=== PATIENT | female | born 1970 | race Caucasian/White ===

== ENCOUNTER → 2023-07-10 06:23 | Day surgery (SDC) | payer OTHER, SELFPAY ==
[2023-07-10 08:27] LABS: Glucose - Point of Care 197 mg/dl (70-99)
== END ==
LOC: GI 06:23
PROVIDERS: ATTENDING PHYSICIAN Internal Medicine Gastroenterology; FAMILY PHYSICIAN Family Medicine
DX: D50.0 Iron deficiency anemia secondary to blood loss (chronic) (principal); R12 Heartburn
CPT/HCPCS: 45378; 43239; 88305; 82962

== ENCOUNTER 2024-10-25 19:11 | Inpatient (IN) | payer OTHER, SELFPAY ==
[2024-10-25] VITALS (11 sets, daily range): BP systolic 87–148; BP diastolic 54–77; PULSE 81–85; BMI 26.6; BMI 27.0
[2024-10-25 14:49] LABS: Hematocrit 34.3 % (37.0-47.0); Hemoglobin 11.4 g/dL (12.0-16.0); Mean Corp Hgb Conc. 33.2 g/dL (33.0-37.0); Mean Corpuscular Volume 92.2 fL (81.0-99.0); Nucleated Red Blood Cells % 0 %; Platelet Count 255 10^3/uL (130-400); Red Cell Dist. Width 14.1 % (11.5-14.5)
[2024-10-25 15:17] LABS: ALT (SGPT) 27 U/L (0-35); AST (SGOT) 23 U/L (14-36); Albumin 4.5 g/dl (3.5-5.0); Alkaline Phosphatase 119 U/L (38-126); Blood Urea Nitrogen 42 mg/dl (7-17); Calcium 9.8 mg/dl (8.4-10.2); Carbon Dioxide 16 mmol/L (22-30); Chloride 114 mmol/L (98-107); Glucose 159 mg/dl (70-99); Potassium 4.8 mmol/L (3.5-5.1); Sodium 140 mmol/L (135-145); Total Protein 7.9 g/dl (6.3-8.2); eGFR 53.13
--- NOTE | 2024-10-25 17:23 | ED.GENMED ---
History of Present Illness
General
Chief Complaint: Dizziness
Source: patient
Exam Limitations: none
Time Seen by Provider: 10/25/24 17:02
Nursing documentation reviewed up to this point in time: agreed with
History of Present Illness
History of Present Illness:
Patient discharged from [facility] 2 weeks ago, after being admitted for 7 weeks secondary to left foot osteomyelitis, resulting in left fifth toe amputation, presents to ED secondary to persistent hypotension with dizziness since being
discharged home. Patient has been evaluated on multiple occasions by visiting nurse with systolic pressure in 80s with symptoms. Patient does report that she has been eating and drinking fluids. Denies fever or chills. Denies increased foot
pain. Denies vomiting or diarrhea. Patient was told to eat a diet rich in salt when she was discharged home. In addition, during hospitalization, patient reports having received cardiac catheterization as part of cardiac clearance, at which point
catheterization revealed 100% occlusion of RCA. Unfortunately, stent could not be placed due to impending foot surgery. Cardiac intervention was deferred until she was discharged home. Patient has an appointment with balling head tender in 2 weeks.
Patient denies chest pain or shortness of breath.
Past History
Past History
ED Past Medical History: NIDDM
Social History
Tobacco: Non-smoker
Review of Systems
Review of Systems
Allergies reviewed?: Yes
All Other Systems: ROS reviewed and negative except as documented in HPI and ROS
Constitutional: Reports no symptoms
Respiratory: Reports no symptoms
Cardiac: Reports no symptoms
ABD/GI: Reports no symptoms
Musculoskeletal: Reports no symptoms
Skin: Reports no symptoms
Neurological: Reports dizzy and weakness
Phy Exam
Physical Exam
Physical Exam:
Physical Exam
General: no apparent distress, not acutely ill. afebrile.
Head: nc/at. eomi
Neck: supple. no meningeal signs.
Neuro: alert and oriented x 3. no focal neurological deficits
Skin: no rash
Psychiatric: well kept. interactive and cooperative
Extremities: no edema. no calf tenderness.
Course
Orders/Labs/Results
Orders:
Orders
10/25/24 14:43
CBC/With Diff [Complete Blood Count/With Diff] Urgent
CMP [Comprehensive Metabolic Panel] Urgent
10/25/24 Dinner
2000 calorie (17 carb) Diabetic
At Your Request: Full Participation
Does patient need a safe tray?: No
10/25/24 17:23
0.9% Sodium Chloride 250 ml [Nss] 250 ml IV BOLUS
10/25/24 17:28
Orthostatic VS- Treatment ONCE
10/25/24 17:35
Lactate Level [Lactic Acid] Urgent
Blood Culture Q30M
RICHI Source: Blood/Venous
Specimen Description:
Blood Culture Q30M
RICHI Source: Blood/Venous
Specimen Description:
10/25/24 18:47
Admit/Transfer Patient As Directed
Co-Sign Provider:
Level of Care: Inpatient admission
Assign to:: Telemetry
Physician / Group: ja
Diagnosis: orthostatic hypotension
Reason for Telemetry: Arrhythmia
Date to Stop Telemetry: 10/28/24
Time to Stop Telemetry: 11:00
Reason for Hospitalization: orthostatic hypotension
Expected length of stay greater than two midnights?: Yes
ELOS- Estimated Length of Stay in days: 2
I certify the patient meets the requirements for IP care: Yes
10/25/24 18:48
PRN Pain Medication Management As Directed
May give lesser potent ordered pain med per pt: Yes
preference::
Protocol:: Medication orders for pain may be administered in a
manner that supports deferring to patient preference
when the pt is:
- Requesting an ordered lesser potent pain medication.
Least to most potent pain medications are defined
as: acetaminophen < NSAID < tramadol < opioids
(morphine, oxycodone, hydromorphone).
- Requesting a lesser dose of the same medication IF
ORDERED.
- Requesting a less intrusive route of administration
if both routes are prescribed by the provider (PO <
IV).
10/25/24 18:49
Code Status As Directed
Resuscitation Status: Full Code
10/25/24 18:50
CR Chest - 2 Views Urgent
Comment:
Reason For Exam: cough
10/25/24 18:52
Midodrine [ProAmatine] 5 mg PO Q8HPRN PRN
10/25/24 20:53
VTE Contraindication Routine
VTE Mechanical Device Contraindication: Medical Contraindication
Pharmocologic Contraindication: Medical Contraindication
Activity As Directed
Activity Level: As Tolerated
Vital Signs As Directed
Frequency: Per unit guidelines
10/26/24 06:00
Complete Blood Count/With Diff IN AM
Comprehensive Metabolic Panel IN AM
10/28/24 11:00
DC Protocol for Telemetry ONCE
Abnormal Lab Results
10/25/24
14:43
RBC 3.72 L 10^6/uL
(4.20-5.40)
Hgb 11.4 L g/dL
(12.0-16.0)
Hct 34.3 L %
(37.0-47.0)
MPV 10.5 H fL
(7.4-10.4)
Absolute Neuts (auto) 6.6 H 10^3/uL
(1.4-6.5)
Lymphocytes % 16.7 L %
(20.5-51.1)
Chloride 114 H mmol/L
(98-107)
Carbon Dioxide 16 L mmol/L
(22-30)
BUN 42 H mg/dl
(7-17)
Creatinine 1.2 H mg/dL
(0.6-1.0)
Glucose 159 H mg/dl
(70-99)
10/25/24 14:43
10/25/24 14:43
Vital Signs
Initial and Last Documented VS:
Initial Vital Signs
Temp Pulse Resp BP Pulse Ox
98.4 F 87 20 115/54 99
10/25/24 14:33 10/25/24 14:33 10/25/24 14:33 10/25/24 14:33 10/25/24 14:33
Last Documented Vital Signs
Temp Pulse Resp BP Pulse Ox
98.1 F 86 16 115/59 99
10/25/24 21:04 10/25/24 21:04 10/25/24 21:04 10/25/24 21:04 10/25/24 21:04
MDM/Problems Addressed
MDM/Problems Addressed:
Orthostatic vital signs checked, notable for significant drop in systolic blood pressure along with extreme dizziness. In light of abnormal cardiac catheterization during recent hospitalization, patient will need further evaluation, including
obtaining records from [facility]. Patient will be admitted for further evaluation and treatment.
*Pulse Oximetry
SaO2: 99
Oxygen Mode of Delivery: Room air
Patient hypoxic: no
*Critical Care Note
Total Time (30-74mins, 75-104mins- exclusive of procedures): Not Applicable
ED Attending Note
-
Portions of this chart may have been created with voice recognition software.� Occasional wrong word or��sound alike� substitutions may have occurred due to the inherent limitations of voice recognition software.
Discharge Plan
Departure
Patient Disposition: Admit
Date of Disposition: 10/25/24
Time of Disposition: 18:25
Admit to: Telemetry
Presentation/result/management discussed w/ accepting MD/DO: Hospitalist
Discharge Problem:
Hypotension
Interventions
Interventions:
*Risk Screen - Suicide Last Done: 10/25/24 14:33
*General Assessment Last Done: 10/25/24 14:33
*Neglect/Abuse Screening Last Done: 10/25/24 14:33
*ED- Fall Risk Assessment Last Done: 10/25/24 17:52
*ED COVID-19 Vaccine History Last Done: 10/25/24 14:33
*Nursing Disposition Last Done: 10/25/24 20:51
ED- Neurological Assessment Last Done: 10/25/24 17:52
ED- Cardiac Assessment Last Done: 10/25/24 20:51
Discharge Date and Time
Discharge Date/Time: 10/25/24 20:52
[2024-10-25] MEDS: NSS 250 IV (17:48)
--- NOTE | 2024-10-25 18:50 | HPS.HSE ---
Family Physician
-
Family Physician: Som Resendiz
Chief Complaint
-
hypotension
History of Present Illness
54-year-old female past medical history of diabetes, anemia, DVT in 2020 on Eliquis, CAD, CHF, osteomyelitis status post left fifth toe metatarsal amputation, venous bypass on the left 4 weeks ago, presenting with symptomatic hypotension.
She was discharged from [facility] 2 weeks ago after 6-week stay for left foot osteomyelitis and toe amputation. During the stay she developed SKYLER secondary to vancomycin as well as acute CHF exacerbation from IV fluids and associated
transaminitis. She was seen by cardiology and had cardiac catheterization which showed 100% RCA occlusion which was not stented due to her foot surgery. Outpatient follow-up was recommended. She has an appointment with Dr. Quintana next week.
She felt fine on discharge but afterwards her blood pressures has been in the 80s systolic with significant orthostatic hypotension. She denies any fevers but feels cold. Denies any discharge or pain of the left foot amputation site. She did have
a cough yesterday which is dry but denies shortness of breath. Denies nausea or vomiting, diarrhea, abdominal pain or urinary symptoms. Denies any rashes or joint pains. Denies neck pain or headache.
She has been eating and drinking sufficiently.
Denies smoking alcohol use.
Medical History
Past Medical History
Past Medical History: Reports Other (diabetes, anemia, DVT in 2020 on Eliquis, CAD, CHF, osteomyelitis status post left fifth toe metatarsal amputation, venous bypass on the left 4 weeks ago)
Past Surgical History: Reports Other (, right foot surgery, left hand surgery,)
Social History
Tobacco: Non-smoker
Alcohol: None
Drug: None
Family History
Family History: Not pertinent
Allergies / Home Medications
Allergies reflects when Allergies were last updated in [facility].
Home Medications with original date entered in [facility]
Allergy/Medication List:
Allergies
Allergy/AdvReac Type Severity Reaction Status Date / Time
gabapentin Allergy Vomiting Verified 10/25/24 14:33
Home Medications
rosuvastatin 20 mg tablet 20 mg PO QPM High cholesterol 01/04/21
albuterol sulfate 90 mcg/actuation aerosol inhaler 2 puff inhalation R Q4HPRN PRN shortness of breath ##1 01/09/21
blood sugar diagnostic (Accu-Chek Guide test strips) #200 strips 01/09/21
blood-glucose meter (Accu-Chek Guide Glucose Meter) #1 ea 01/09/21
dexamethasone 6 mg tablet (Decadron) 6 mg PO DAILY 5 days #5 tabs 01/09/21
insulin aspart U-100 100 unit/mL (3 mL) subcutaneous pen (Novolog FlexPen U-100 Insulin aspart) 30 units (0.3 mL) SC AC 30 days ##5 01/09/21
insulin glargine 100 unit/mL (3 mL) subcutaneous pen (Lantus Solostar U-100 Insulin) 38 units (0.38 mL) SC HS 30 days ##5 01/09/21
lancets (Accu-Chek Fastclix Lancet Drum) #200 ea 01/09/21
pen needle, diabetic 32 gauge x 1/4' (BD Ultra-Fine Micro Pen Needle) ##200 01/09/21
rivaroxaban 15 mg (42)-20 mg (9) tablets in a starter pack (Xarelto DVT-PE Treatment 30-Day Starter) 1 tab PO DIRECTED ##1 01/09/21
Review of Systems
-
History Source: Patient
A 12 point ROS was completed and negative except as noted: Yes
Constitutional: Reports No Symptoms
EENT: Reports No Symptoms
Respiratory: Reports No Symptoms
Cardiac: Reports No Symptoms
Abdomen/GI: Reports No Symptoms
: Reports No Symptoms
Musculoskeletal: Reports No Symptoms
Skin: Reports No Symptoms
Neurological: Reports No Symptoms
Endocrine: Reports No Symptoms
Hematologic/Lymphatic: Reports No Symptoms
Psych: Reports No Symptoms
Physical Exam
Vital Signs
Vital Signs
Temp Pulse Resp BP Pulse Ox
98.4 F 84 21 131/75 100
10/25/24 14:33 10/25/24 18:15 10/25/24 18:15 10/25/24 18:01 10/25/24 18:15
Physical Exam
General: Well Developed, Well Nourished and No Apparent Distress
HEENT: NormoCephalic, Moist mucous membranes and Atraumatic
Respiratory: Clear
Cardiac: S1/S2 and Regular Rhythm; No Murmur or Rub
GI: Soft, Non Tender, Non Distended and Normal Bowel Sounds; No Organomegaly
Rectal: Deferred by Provider
Musculoskeletal: No Clubbing, No Cyanosis and No Edema
Skin: No Rash
Neuro: Nonfocal/grossly intact
Laboratory Results
-
10/25/24 14:43
10/25/24 14:43
Laboratory Results
Lactic Acid 0.9 mmol/L (0.7-2.0) 10/25/24 17:35
Total Bilirubin 0.6 mg/dl (0.2-1.3) 10/25/24 14:43
AST 23 U/L (14-36) 10/25/24 14:43
ALT 27 U/L (0-35) 10/25/24 14:43
Alkaline Phosphatase 119 U/L (38-126) 10/25/24 14:43
Data Reviewed
-
Lab Data: Labs Reviewed by me
Old Records: Reviewed
Impression/Plan
-
IMPRESSION:
PLAN:
# Hypotension/severe orthostatic hypotension possibly 100% RCA occlusion contributing
- Blood cultures pending although no signs of infection apart from cough
- IV fluids given, hold further fluids given history of congestive heart failure
- Blood pressure 140 systolic after IV fluids however dropping to 80s with standing
-Midodrine as needed
- Need to get records from [facility] particularly regarding echocardiogram and cardiology workup
- Cardiology consulted
# Improving acute kidney injury secondary to vancomycin
-Creatinine of 1.2 which is significantly improved from 4 during recent admission at [facility]
# Cough
- Check chest x-ray
Osteomyelitis status post left fifth metatarsal amputation
Venous bypass 4 weeks ago of left leg
-Continue oxycodone
CAD with 100% RCA occlusion
- Not stented due to recent foot surgery
- Outpatient follow-up with Dr. Quintana planned
- Continue aspirin
History of heart failure during recent admission
Type 2 diabetes
- Continue Lantus 16
- Insulin sliding scale
Chronic anemia
- Hemoglobin of 11.4 which is close to discharge hemoglobin
- Continue ferrous sulfate
DVT in 2020
-Continue Eliquis
Full code
DVT prophylaxis/Eliquis
Regular diet
[2024-10-25] MEDS: TYLENOL 1000 MG PO (22:27)
[2024-10-25 23:23] LABS: Glucose - Point of Care 217 mg/dl (70-99)
[2024-10-25] MEDS: LANTUS 0.16 UNITS SC (23:30)
[2024-10-26 03:00] VITALS: BP 119/61
[2024-10-26 05:09] VITALS: BMI 27.0
[2024-10-26 07:18] LABS: Glucose - Point of Care 229 mg/dl (70-99)
[2024-10-26 07:30] VITALS: BP 116/71
[2024-10-26 07:34] LABS: Hematocrit 32.1 % (37.0-47.0); Hemoglobin 10.4 g/dL (12.0-16.0); Mean Corp Hgb Conc. 32.4 g/dL (33.0-37.0); Mean Corpuscular Volume 94.4 fL (81.0-99.0); Nucleated Red Blood Cells % 0 %; Platelet Count 209 10^3/uL (130-400); Red Cell Dist. Width 13.9 % (11.5-14.5)
[2024-10-26 07:37] LABS: ALT (SGPT) 23 U/L (0-35); AST (SGOT) 18 U/L (14-36); Albumin 3.9 g/dl (3.5-5.0); Alkaline Phosphatase 103 U/L (38-126); Blood Urea Nitrogen 38 mg/dl (7-17); Calcium 9.5 mg/dl (8.4-10.2); Carbon Dioxide 17 mmol/L (22-30); Chloride 119 mmol/L (98-107); Estimated Creatinine Clearance 47 ml/min; Glucose 196 mg/dl (70-99); Potassium 4.6 mmol/L (3.5-5.1); Sodium 143 mmol/L (135-145); Total Protein 6.8 g/dl (6.3-8.2); eGFR 53.13
--- NOTE | 2024-10-26 07:37 | CON.CAR ---
Addendum entered and electronically signed by Darwin Yo MD 10/26/24 17:06:
I saw and examined the patient.
The Ux Visual Designer's note was reviewed and I agree with the note.
Comment:
GEN: No distress, awake, Ox3
HEENT: supple, anicteric, mmm
LUNGS: CTA, no wheezes/rales
CV: Reg, S1/S2, 1/6 syst LSB, no murmur
ABD: soft, BS+, NT/ND
EXT: No edema
NEURO: Gross non-focal
SKIN: dressing inttact
Plan:
54-year-old female with extended hospitalization at [facility] for left foot osteomyelitis with peripheral bypass and left fifth toe amputation, coronary artery disease status post cardiac cath, hypotension, hyperlipidemia, diabetes, anemia,
presents to [facility] with dizziness and lightheadedness.
I reviewed all of her records from [facility]. Cardiac cath was performed in August 2024 with 100% chronic total occlusion of the RCA, 60-70 send left circumflex lesion and diffuse disease in her LAD. LVEF was preserved.
Of note, the patient's family contact stated she had another episode after a cath of chest pains with an abnormal troponin. These records are currently unavailable.
Also during her hospitalization she had acute renal failure with a creatinine up to 2.4 which dramatically improved.
The etiology of her lightheadedness and dizziness remains unclear. I suspect this is more due to deconditioning, fatigue, and possible orthostasis. She has had low blood pressure in the past.
Recommend repeat echocardiogram to reevaluate LVEF and valves. Will add midodrine 2.5 mg p.o. twice daily and follow blood pressure closely. Check orthostatics. Continue to increase oral hydration.
Will add low-dose carvedilol 3with history of coronary artery disease. Continue aspirin, Plavix, and will add statin.
Original Note:
Consultation
Consultation Request
Date/Time Consultation Requested: 10/25/2024 at 2342
Date/Time Consultation Performed: 10/26/2024 at 0744
Requesting Provider: Dr. Ley
Performing Provider: Dr. Alvarado
Reason for Consultation: Hypotension, CAD
Medical History
-
History of Present Illness:
Patient came to [facility] ER yesterday with hypotension and cardiology is consulted for h/o CAD. Patient lives in [place] and was just admitted with [facility] 08/26/24 until 10/06/24 with left foot osteomyelitis resulting in left 5th toe amputation and
peripheral bypass. Records obtained by my office and are pending, but patient reports vancomycin caused SKYLER. Patient was given IVFs and then reportedly had CHF. Patient was seen by cardiology during [facility] admission and had cardiac cath prior to
peripheral bypass that revealed a SHOP GIRL RCA and patient reports that no PCI due to need for peripheral bypass, again await records. Patient says she was told to consume a high salt diet at home due to hypotension. VN has been following patient at home
and told patient to go to ER with hypotension.
PMH:
Recent admission to [facility] left foot osteomyelitis, SKYLER, PAD and CAD 08/26/2024 until 10/06/2024
CAD
Abnormal pharmacologic stress test at [facility] 08/2024
SHOP GIRL of RCA, focal lesion left circumflex and diffuse luminal irregularities in the LAD by cardiac cath at [facility] 08/2024
Orthostatic hypotension
Reported h/o acute HF unknown EF during admission to [facility]
PAD
s/p left fifth toe amputation at [facility] 08/2024
s/p left femoral-tibial peripheral bypass at [facility] 09/08/24
h/o PE in the setting of COVID 2020
DM 2
Anemia
s/p 2 units PRBCs at [facility]
Past Medical History
Past Medical History: Other (In HPI)
Past Surgical History: Cardiac (Cardiac cath at [facility] with SHOP GIRL RCA 08/2024), and Other (Left fifth toe amputation and peripheral bypass at [facility] 08/2024)
Social History
Tobacco: Non-Smoker
Alcohol: None
Drug: None
Personal:
Living: With Family
Employment: Employed
Family History
Family History: Other (No known history of CAD)
Allergies / Home Medications
Allergy/AdvReac Type Severity Reaction Status Date / Time
gabapentin Allergy Vomiting Verified 10/25/24 14:33
�Medication �Instructions �Recorded �Confirmed �Type
aspirin 81 mg tablet,delayed 81 mg PO DAILY 10/25/24 10/25/24 History
release
clopidogrel 75 mg tablet (Plavix) 75 mg PO DAILY 10/25/24 10/25/24 History
famotidine 20 mg tablet (Pepcid) 20 mg PO DAILY 10/25/24 10/25/24 History
ferrous sulfate 325 mg (65 mg 975 mg PO DAILY 10/25/24 10/25/24 History
iron) tablet
insulin aspart U-100 100 unit/mL 8 units SC AC 10/25/24 10/25/24 History
(3 mL) subcutaneous pen (Novolog
FlexPen U-100 Insulin aspart)
insulin glargine-yfgn 100 unit/mL 19 unit SC HS 10/25/24 10/25/24 History
subcutaneous solution
polyethylene glycol 3350 17 gram 17 g PO DAILYPRN PRN CONSTIPATION 10/25/24 10/25/24 History
oral powder packet (Miralax)
sennosides 8.6 mg tablet (senna) 8.6 mg PO DAILY 10/25/24 10/25/24 History
sodium hypochlorite 0.125 % 1 applic topical DAILY LEFT TOE 10/25/24 10/25/24 History
solution (Dakin's Solution) WOUND
zolpidem 5 mg tablet (Ambien) 5 mg PO HS 10/25/24 10/25/24 History
Review of Systems
-
History Source: Patient
All other systems: Negative unless noted
Physical Exam
Vital Signs
Temp Pulse Resp BP Pulse Ox
97.9 F 74 16 119/61 96
10/26/24 03:00 10/26/24 03:00 10/26/24 03:00 10/26/24 03:00 10/26/24 03:00
GEN: NAD. AAOx3
HEENT: EOMI, MMM
LUNGS: RA. CTA B/L, no wheeze
CV: SR on tele. Reg, S1/S2, no murmur
ABD: soft, BS+, NT, ND
EXT: No clubbing, cyanosis, lesions or edema B/L
NEURO: Gross non-focal
SKIN: No rash
Lab Results
10/26/24 06:56
10/26/24 06:56
Impression / Plan
-
PCP: Dr. Som Resendiz
Card: seen by cardiology during admission to [facility] last month and now with upcoming appt to see Dr. Quintana 11/10/24
Impression:
Admitted with hypotension and CAD 10/25/24
Recent admission to [facility] left foot osteomyelitis, SKYLER, PAD and CAD 08/26/2024 until 10/06/2024
CAD
Abnormal pharmacologic stress test at [facility] 08/2024
SHOP GIRL of RCA, focal lesion left circumflex and diffuse luminal irregularities in the LAD by cardiac cath at [facility] 08/2024
Orthostatic hypotension
Reported h/o acute HF unknown EF during admission to [facility]
PAD
s/p left fifth toe amputation at [facility] 08/2024
s/p left femoral-tibial peripheral bypass at [facility] 09/08/24
h/o PE in the setting of COVID 2020
DM 2
Anemia
s/p 2 units PRBCs at [facility]
Lexiscan nuclear stress test 09/02/2024: [facility] study, inferior ischemia, medium sized perfusion defect in the inferior location, EF 64%
Cardiac cath 09/05/2024: [facility] study, left main no disease, LAD small to medium caliber vessel with mild diffuse disease, diagonal 1 small caliber mild diffuse disease, diagonal 2 small caliber vessel with 60% proximal stenosis, circumflex small
caliber vessel with 60 to 70% stenosis at the origin of the OM-1, OM-160% stenosis, RCA small caliber vessel with 100% SHOP GIRL occlusion suggesting SHOP GIRL in the mid segment with [id number] collaterals
Echo 08/26/2024: EF 55 to 60%, medium sized mid to apical inferior WMA, grade 1 diastolic dysfunction, normal RV size and function
Echo 09/29/2024: EF 55 to 60%, small inferior basilar hypokinetic LV wall motion abnormality, mild LVH, no
Labs at [facility] 10/05/2024: Sodium 141, potassium 4.1, BUN 34, creatinine 2.38, WBC 5.4, Hgb 9.2, PLT 279,000
Plan:
-Patient came to [facility] ER yesterday with hypotension and cardiology is consulted for h/o CAD. Patient lives in [place] and was just admitted with [facility] 08/26/24 until 10/06/24 with left foot osteomyelitis resulting in left 5th toe amputation and
peripheral bypass. Records obtained by my office and are pending, but patient reports vancomycin caused SKYLER. Patient was given IVFs and then reportedly had CHF. Patient was seen by cardiology during [facility] admission and had cardiac cath prior to
peripheral bypass that revealed a SHOP GIRL RCA and patient reports that no PCI due to need for peripheral bypass, again await records. Patient says she was told to consume a high salt diet at home due to hypotension. VN has been following patient at home
and told patient to go to ER with hypotension.
-I requested, received and reviewed 45 pages of records from [facility] on 10/26/2024. Patient sent to [facility] ER by her outpatient ash collector for concerns about nonhealing left foot wound. MRI indicated osteomyelitis. Patient was seen by vascular surgery
and had a left fem-tib bypass on 09/08/2024 followed by left partial fifth ray resection by podiatry on 09/15/2024. In the setting of vancomycin, CT angiogram, cardiac cath and peripheral angiogram patient developed SKYLER and creatinine was as high as
2.38 on 10/05/2024, but appears improved at 1.2 now. Patient was given IV fluids for SKYLER and also for persistent hypotension followed by concern for possible volume overload. EF preserved throughout on echo x 2. Patient noted to be anemic and was
given 2 units PRBCs and seen by GI and also possibly hematology. Will also work on requesting discharge summary which may give more information regarding anemia.
-Patient admitted through the ER last night with concern for symptomatic hypotension in the setting of SHOP GIRL of the RCA, but no ECG checked. ECG ordered by me 10/26/2024, will review
-No symptoms of angina. Stress test and cardiac cath reviewed by me and summarized above. Patient believes there was a plan for eventual RCA intervention, but on my review of cardiac cath there was no plan on RCA intervention, only discussion
about possible eventual circumflex intervention. I have requested for cardiac cath films to be pushed via [employer] into the [facility] system for review.
-Patient is tolerating DAPT with aspirin and Plavix for her recent peripheral bypass and known PAD. Would continue with DAPT.
-EF preserved by echo at [facility] on 08/26/2024 and 09/29/2024
-Orthostatic VS performed in the ER last night with supine BP 144/73 HR 82, sitting BP 139/70 HR 81 and standing BP 87/66 with HR 82. Patient was given a 250 mL IVF bolus. Repeat orthostatic VS this morning include supine BP 138/67 HR 85, sitting
BP 132/62 HR 82 standing BP 119/57 HR 84. Despite improved orthostatic VS readings patient reports ongoing generalized weakness and some lightheadedness.
-[facility] records patient was dealing with hypotension which was limiting GDMT. Would continue to avoid anti-HTN agents.
-Patient with anemia at [facility] in the setting of peripheral bypass surgery and repeated phlebotomy as part of close monitoring. Hgb on admission to [facility] was 11.4 and then 10.4, overall these are better than her labs from [facility] on 10/05/2024. No
indication for transfusion.
-Start midodrine 2.5 mg TID now
-Start Coreg 3.125 mg BID as medical management of CAD
[2024-10-26] MEDS: NOVOLOG FLEXPEN-LOW RESISTANCE 2 UNITS SC (08:06)
[2024-10-26] MEDS: PEPCID 20 MG PO (08:07)
[2024-10-26] MEDS: ASPIR LOW (ENTERIC COATED) 81 MG PO (08:07)
[2024-10-26] MEDS: SENOKOT 8.6 MG PO (08:07)
[2024-10-26] MEDS: FEOSOL 975 MG PO (08:07)
[2024-10-26] MEDS: PLAVIX 75 MG PO (08:08)
[2024-10-26] MEDS: DAKIN'S SOLUTION 0.125% 1/4 STRENGTH 473 ML TOPICAL (08:12)
[2024-10-26] MEDS: COREG 3.125 MG PO ×2 (10:20→20:32)
--- NOTE | 2024-10-26 10:44 | CM ---
CM following re: discharge planning.
Reviewed pt's chart, met with pt and pt's best friend at bedside.
Pt is a 54 year old female, admitted with primary dx of Hypotension
Pt reports she lives with and a daughter 2SH, 1 step to enter. Pt reports she ambulates with a walker, [facility] and pt requested to resume [facility] upon the discharge.
A referral to [facility] made.
PCP: Som Resendiz
Pharmacy: [facility]
Please fax discharge instructions to [facility] at [phone]
D/C plan: home with resumptions of [facility] and family support. to transport at discharge.
CM will follow with discharge plan updates as hospitalization progresses
[2024-10-26 11:14] LABS: Glucose - Point of Care 278 mg/dl (70-99)
[2024-10-26 11:37] VITALS: BP 130/67
[2024-10-26] MEDS: NOVOLOG FLEXPEN 6 UNITS SC ×2 (11:40→17:41)
--- NOTE | 2024-10-26 11:40 | W.PN.HOSP.TC ---
Today's Communication/Plan
-
Monitor vital signs
see plan
Start mealtime insulin
Agree with standing midodrine
Monitor orthostatics
Monitor renal function
Assessment / Plan
Assessment / Plan
General: Well Developed, Well Nourished and No Apparent Distress
HEENT: NormoCephalic, Moist mucous membranes and Atraumatic
Respiratory: Clear
Cardiac: S1/S2 and Regular Rhythm; No Murmur or Rub
GI: Soft, Non Tender, Non Distended and Normal Bowel Sounds
Musculoskeletal:No Edema
Neuro: Nonfocal/grossly intact
Hypotension/severe orthostatic hypotension possibly 100% RCA occlusion contributing
- Blood cultures pending although no signs of infection apart from cough
Was mildly responsive to fluid resuscitation in the ED, hold further fluids. Continue to monitor orthostatics
Midodrine standing. Per patient her dizziness has been there for about 4 years
- Need to get records from [facility] particularly regarding echocardiogram and cardiology workup
- Cardiology following
Awaiting cardiology records from [facility]
Agree with checking echo
# Improving acute kidney injury secondary to vancomycin,contrast
-Creatinine of 1.2 which is significantly improved from 4 during recent admission at [facility]
Osteomyelitis status post left fifth metatarsal amputation
PAD
s/p left fifth toe amputation at [facility] 08/2024
s/p left femoral-tibial peripheral bypass at [facility] 09/08/24
-Continue oxycodone
cw DAPT
CAD with 100% RCA occlusion
EKG with previous possible inferior infarct, age undetermined. Per patient EKG [facility] showed possible infarct as well which she was never aware of which prompted them to do cardiac catheterization
- Not stented due to recent foot surgery
Cardiology following
- Continue aspirin
History of heart failure during recent admission
Type 2 diabetes
Continue Lantus, add mealtime insulin
- Insulin sliding scale
check A1c
Chronic anemia
- Continue ferrous sulfate
monitor
DVT in 2020
-not on AC
heparin for DVT ppx
Full code
Anticipated Discharge: 24 - 48 hours
Subjective/Interval History
-
Date of Service: October 26, 2024
does get [place]
Objective Data
-
Labs:
Laboratory Results
10/26/24
06:56
WBC 5.2
Hgb 10.4 L
Hct 32.1 L
Plt Count 209
Sodium 143
Potassium 4.6
Chloride 119 H
Carbon Dioxide 17 L
BUN 38 H
Creatinine 1.2 H
Glucose 196 H
Calcium 9.5
Total Bilirubin 0.6
AST 18
ALT 23
Alkaline Phosphatase 103
Vital Signs:
Vital Signs
Temp Pulse Resp BP Pulse Ox
97.9 F 79 18 130/67 99
10/26/24 11:37 10/26/24 11:37 10/26/24 11:37 10/26/24 11:37 10/26/24 11:37
I&O
10/25/24 10/26/24 10/27/24
06:59 06:59 06:59
Intake Total 240 / 240
Balance 240 / 240
[2024-10-26] MEDS: NOVOLOG FLEXPEN-LOW RESISTANCE 3 UNITS SC (11:41)
[2024-10-26 15:11] VITALS: BP 100/55; BP 132/66; BP 136/63; PULSE 79; PULSE 80; PULSE 82
[2024-10-26 17:32] LABS: Glucose - Point of Care 192 mg/dl (70-99)
[2024-10-26] MEDS: NOVOLOG FLEXPEN-LOW RESISTANCE 1 UNITS SC (17:41)
[2024-10-26 19:00] VITALS: BP 104/59
[2024-10-26] MEDS: HEPARIN 5000 UNITS SC (20:32)
[2024-10-26 21:53] LABS: Glucose - Point of Care 374 mg/dl (70-99)
[2024-10-26] MEDS: LANTUS 0.18 UNITS SC (22:29)
[2024-10-26] MEDS: NOVOLOG FLEXPEN 5 UNITS SC (22:49)
[2024-10-26 23:35] VITALS: BP 133/67
[2024-10-27] VITALS (8 sets, daily range): BP systolic 80–140; BP diastolic 44–71; PULSE 78–82; BMI 26.5
[2024-10-27 01:02] LABS: Glucose - Point of Care 273 mg/dl (70-99)
[2024-10-27 08:00] LABS: Hematocrit 31.1 % (37.0-47.0); Hemoglobin 10.1 g/dL (12.0-16.0); Mean Corp Hgb Conc. 32.5 g/dL (33.0-37.0); Mean Corpuscular Volume 93.7 fL (81.0-99.0); Nucleated Red Blood Cells % 0 %; Platelet Count 227 10^3/uL (130-400); Red Cell Dist. Width 13.8 % (11.5-14.5)
[2024-10-27 08:21] LABS: Blood Urea Nitrogen 30 mg/dl (7-17); Calcium 9.6 mg/dl (8.4-10.2); Carbon Dioxide 17 mmol/L (22-30); Chloride 114 mmol/L (98-107); Estimated Creatinine Clearance 56 ml/min; Glucose 239 mg/dl (70-99); Potassium 4.8 mmol/L (3.5-5.1); Sodium 140 mmol/L (135-145); eGFR > 60.00
[2024-10-27 08:43] LABS: Glucose - Point of Care 238 mg/dl (70-99)
[2024-10-27] MEDS: PLAVIX 75 MG PO (09:05)
[2024-10-27] MEDS: COREG 3.125 MG PO ×2 (09:05→20:25)
[2024-10-27] MEDS: PEPCID 20 MG PO (09:06)
[2024-10-27] MEDS: FEOSOL 975 MG PO (09:06)
[2024-10-27] MEDS: ASPIR LOW (ENTERIC COATED) 81 MG PO (09:06)
[2024-10-27] MEDS: SENOKOT 8.6 MG PO (09:06)
[2024-10-27] MEDS: HEPARIN 5000 UNITS SC ×2 (09:06→20:25)
[2024-10-27] MEDS: NOVOLOG FLEXPEN-LOW RESISTANCE 2 UNITS SC ×2 (09:08→12:52)
[2024-10-27] MEDS: DAKIN'S SOLUTION 0.125% 1/4 STRENGTH 473 ML TOPICAL (09:09)
[2024-10-27] MEDS: NOVOLOG FLEXPEN SC (09:16)
[2024-10-27] MEDS: NOVOLOG FLEXPEN 9 UNITS SC ×3 (09:22→17:48)
[2024-10-27 09:31] LABS: Glycohemoglobin (HgbA1c) 7.4 % (4.0-5.6)
--- NOTE | 2024-10-27 09:56 | W.PN.CARDCBS ---
Addendum entered and electronically signed by Jerald Jorgensen MD 10/27/24 15:30:
54-year-old woman with complex history, admitted with weakness and orthostasis, better now after addition of midodrine
PMH: Extensive. CAD with CORE DROPPER of RCA, 60% circumflex, luminal irregularities of LAD, diabetes, osteomyelitis of the left foot, SKYLER, PAD, remote pulmonary embolus, anemia, orthostasis, hypercholesterolemia
Current medications: Reviewed
Says she is still somewhat dizzy but modestly improved on midodrine 2.5 mg 3 times daily
113/57, pulse 78, no distress, head neck exam unremarkable, lungs clear, regular rate and rhythm, no obvious murmurs Limited exam, abdomen benign extremities without clubbing cyanosis or edema neuro nonfocal
ECG: Cannot exclude inferior ND nonspecific T wave changes
Echo 10/26/2024: EF 65-70%, normal RV, mild MR
Carotid ultrasound: Pending
Hemoglobin 10.1, BUN/creatinine 30 and 1.0, potassium 4.8, cortisol level 11, ECG sinus rhythm
Impression:
Orthostatic hypotension
CAD as below
History of heart failure with preserved EF
PAD status post amputation left fifth toe
History of PE
Longstanding diabetes, presumably type I
Other diagnoses as below, per Rashmi Roque. Reviewed in detail and agree, unless otherwise specified.
Plan:
Predominant issue during this hospital stay was orthostasis which seems somewhat better on low-dose midodrine. Okay for discharge. Follow-up arranged.
Would uptitrate midodrine at discharge. Patient instructed to buy wedge and sleep with head elevated given orthostasis.
Recommended cardiac medications at discharge:
Aspirin 81 mg a day
Clopidogrel 75 mg a day
Midodrine 5 mg 3 times daily, new
carvedilol 3.125 mg twice daily, dose reduced
Rosuvastatin 20 mg daily
Original Note:
Today's Communication / Plan
-
Check carotid u/s
Cont midodrine and Coreg
Cardiology f/u arranged
Impression / Plan
-
PCP: Dr. Som Resendiz
Card: seen by cardiology during admission to [facility] last month and now with upcoming appt to see Dr. Quintana 11/10/24
Impression:
Admitted with hypotension and CAD 10/25/24
Recent admission to [facility] left foot osteomyelitis, SKYLER, PAD and CAD 08/26/2024 until 10/06/2024
CAD
Abnormal pharmacologic stress test at [facility] 08/2024
CORE DROPPER of RCA, focal lesion left circumflex and diffuse luminal irregularities in the LAD by cardiac cath at [facility] 08/2024
Orthostatic hypotension
Reported h/o acute HF unknown EF during admission to [facility]
PAD
s/p left fifth toe amputation at [facility] 08/2024
s/p left femoral-tibial peripheral bypass at [facility] 09/08/24
h/o PE in the setting of COVID 2020
DM 2
Anemia
s/p 2 units PRBCs at [facility]
Lexiscan nuclear stress test 09/02/2024: [facility] study, inferior ischemia, medium sized perfusion defect in the inferior location, EF 64%
Cardiac cath 09/05/2024: [facility] study, left main no disease, LAD small to medium caliber vessel with mild diffuse disease, diagonal 1 small caliber mild diffuse disease, diagonal 2 small caliber vessel with 60% proximal stenosis, circumflex small
caliber vessel with 60 to 70% stenosis at the origin of the OM-1, OM-160% stenosis, RCA small caliber vessel with 100% CORE DROPPER occlusion suggesting CORE DROPPER in the mid segment with [id number] collaterals
Echo 08/26/2024: EF 55 to 60%, medium sized mid to apical inferior WMA, grade 1 diastolic dysfunction, normal RV size and function
Echo 09/29/2024: EF 55 to 60%, small inferior basilar hypokinetic LV wall motion abnormality, mild LVH, no
Echo 10/26/2024: EF 65 to 70%, normal diastolic function, normal RV size and function, mild MR
Labs at [facility] 10/05/2024: Sodium 141, potassium 4.1, BUN 34, creatinine 2.38, WBC 5.4, Hgb 9.2, PLT 279,000
Plan:
-Most recent set of orthostatic VS from 10/26/2024 PM as follows: Supine BP 136/63 HR 79, sitting BP 132/66 HR 80, standing BP 155 HR 82.
-BP prior to morning meds on 10/27/2024 is 140/71
-Patient continues to midodrine 2.5 mg TID@0800, 1300 and 1800
-Patient is also new to Coreg 3.125 mg BID as part of the medical therapy for known CAD.
-Talked with patient in room and she was able to call her sister, Sayda, to be on the phone during our discussion. We reviewed hospitalization thus far along with some pertinent details from previous admission to [facility]. Patient's sister pointing
out that carotid U/S never performed at [facility]. Carotid U/S ordered by me following review with hospitalist attending and we await result. Reviewed with patient and sister that there is a chance there is carotid disease given CAD, LE PAD and DM 2 as
risk factors.
-We reviewed echo from 10/26/2024 and compared to echo studies from [facility]. At this point there are no concerning symptoms for angina or ACS and given SKYLER at [facility] patient is at increased risk for recurrent SKYLER. No plans for repeat coronary
intervention at this time. Patient is still scheduled to see Dr. Quintana in the office coming up in October.
-ECG from 10/26/2024 reviewed by me shows SR without acute ST changes
-Appreciate help of medical records department in our office and obtaining records and also requesting cardiac cath films to be pushed via [facility] into the [facility] system for review.
-Patient is tolerating DAPT with aspirin and Plavix for her recent peripheral bypass and known PAD. Would continue with DAPT.
HPI: Patient came to [facility] ER yesterday with hypotension and cardiology is consulted for h/o CAD. Patient lives in [place] and was just admitted with [facility] 08/26/24 until 10/06/24 with left foot osteomyelitis resulting in left 5th toe amputation and
peripheral bypass. Records obtained by my office and are pending, but patient reports vancomycin caused SKYLER. Patient was given IVFs and then reportedly had CHF. Patient was seen by cardiology during [facility] admission and had cardiac cath prior to
peripheral bypass that revealed a CORE DROPPER RCA and patient reports that no PCI due to need for peripheral bypass, again await records. Patient says she was told to consume a high salt diet at home due to hypotension. VN has been following patient at home
and told patient to go to ER with hypotension. I requested, received and reviewed 45 pages of records from [facility] on 10/26/2024. Patient sent to [facility] ER by her outpatient cement sack breaker for concerns about nonhealing left foot wound. MRI indicated
osteomyelitis. Patient was seen by vascular surgery and had a left fem-tib bypass on 09/08/2024 followed by left partial fifth ray resection by podiatry on 09/15/2024. In the setting of vancomycin, CT angiogram, cardiac cath and peripheral angiogram
patient developed SKYLER and creatinine was as high as 2.38 on 10/05/2024, but appears improved at 1.2 now. Patient was given IV fluids for SKYLER and also for persistent hypotension followed by concern for possible volume overload. EF preserved
throughout on echo x 2. Patient noted to be anemic and was given 2 units PRBCs and seen by GI and also possibly hematology. Will also work on requesting discharge summary which may give more information regarding anemia.
Progress Note - [place]
Subjective
Date of Service: October 27, 2024
Feeling well, still dizzy at times
Objective
Labs:
10/27/24 06:27
10/27/24 06:27
Labs
Hgb 10.1 g/dL (12.0-16.0) L 10/27/24 06:27
Hct 31.1 % (37.0-47.0) L 10/27/24 06:27
Plt Count 227 10^3/uL (130-400) 10/27/24 06:27
Sodium 140 mmol/L (135-145) 10/27/24 06:27
Potassium 4.8 mmol/L (3.5-5.1) 10/27/24 06:27
BUN 30 mg/dl (7-17) H 10/27/24 06:27
Creatinine 1.0 mg/dL (0.6-1.0) 10/27/24 06:27
Glucose 239 mg/dl (70-99) H 10/27/24 06:27
Vital Signs and I&O:
Vital Signs
Temp Pulse Resp BP Pulse Ox
98.1 F 82 18 140/71 97
10/27/24 07:19 10/27/24 09:06 10/27/24 07:19 10/27/24 09:06 10/27/24 07:19
Vital Signs
Temp Pulse Resp BP Pulse Ox
98.1 F 82 18 140/71 97
10/27/24 07:19 10/27/24 09:06 10/27/24 07:19 10/27/24 09:06 10/27/24 07:19
Intake & Output
10/25/24 10/26/24 10/27/24 10/28/24
06:59 06:59 06:59 06:59
Intake Total 240 / 240 1320 / 1320
Balance 240 / 240 1320 / 1320
Physical Exam
Physical Exam
GEN: NAD. AAOx3
LUNGS: RA. No audible wheeze
CV: SR on tele.
[2024-10-27 11:07] LABS: Cortisol, Random 11.3 ug/dl
--- NOTE | 2024-10-27 11:14 | W.PN.HOSP.TC ---
Today's Communication/Plan
-
Monitor vital signs
see plan
Carotid ultrasound
Continue with aspirin, Plavix
Continue Coreg, midodrine
If carotid ultrasound looks okay and patient is improving then likely discharge today
Discussed with sister over the phone
Assessment / Plan
Assessment / Plan
General: Well Developed, Well Nourished and No Apparent Distress
HEENT: NormoCephalic, Moist mucous membranes and Atraumatic
Respiratory: Clear
Cardiac: S1/S2 and Regular Rhythm; No Murmur or Rub
GI: Soft, Non Tender, Non Distended and Normal Bowel Sounds
Musculoskeletal:No Edema
Neuro: Nonfocal/grossly intact
Hypotension/severe orthostatic hypotension secondary to autonomic dysfunction
Random cortisol normal
- Blood cultures NGTD
Was mildly responsive to fluid resuscitation in the ED, hold further fluids. Continue to monitor orthostatics
Midodrine standing. Per patient her dizziness has been there for about 4 years
- Need to get records from [facility] particularly regarding echocardiogram and cardiology workup
- Cardiology following
Awaiting cardiology records from [facility]
Echo with preserved EF
Continue with low-dose Coreg and midodrine
Ultrasound carotid pending
Per cardiology, no
# Improving acute kidney injury secondary to vancomycin,contrast
-Creatinine of 1.2 which is significantly improved from 4 during recent admission at [facility]
Creatinine now improving, 1 today
Osteomyelitis status post left fifth metatarsal amputation
PAD
s/p left fifth toe amputation at [facility] 08/2024
s/p left femoral-tibial peripheral bypass at [facility] 09/08/24
-Continue oxycodone
cw DAPT
Patient should be following up with vascular from [facility] outpatient
CAD with 100% RCA occlusion
EKG with previous possible inferior infarct, age undetermined. Per patient EKG [facility] showed possible infarct as well which she was never aware of which prompted them to do cardiac catheterization
- Not stented due to recent foot surgery
Cardiology following, no plan for any coronary intervention. Discussed with cardiology
- Continue aspirin
History of heart failure during recent admission
Type 2 diabetes
Continue Lantus, cw mealtime insulin
- Insulin sliding scale
A1c 7.4
Chronic anemia
- Continue ferrous sulfate
monitor
DVT in 2020
-not on AC
heparin for DVT ppx
Full code
Anticipated Discharge: Within 24 hours
Subjective/Interval History
-
Date of Service: October 27, 2024
denies pain
Objective Data
-
Labs:
Laboratory Results
10/27/24
06:27
WBC 6.0
Hgb 10.1 L
Hct 31.1 L
Plt Count 227
Sodium 140
Potassium 4.8
Chloride 114 H
Carbon Dioxide 17 L
BUN 30 H
Creatinine 1.0
Glucose 239 H
Calcium 9.6
Vital Signs:
Vital Signs
Temp Pulse Resp BP Pulse Ox
98.1 F 82 18 140/71 97
10/27/24 07:19 10/27/24 09:06 10/27/24 07:19 10/27/24 09:06 10/27/24 07:19
I&O
10/26/24 10/27/24 10/28/24
06:59 06:59 06:59
Intake Total 240 / 240 1320 / 1320
Balance 240 / 240 1320 / 1320
[2024-10-27 12:05] LABS: Glucose - Point of Care 227 mg/dl (70-99)
--- NOTE | 2024-10-27 13:30 | CM ---
CM following re: discharge planning.
Reviewed pt's chart, met with pt.
Pt lives with and a daughter 2SH, 1 step to enter. Pt reports she ambulates with a walker, currently with [facility] and pt requested to resume [facility] upon the discharge.
[facility] liaison following.
Please fax discharge instructions to [facility] at [phone]
D/C plan: home with resumptions of [facility] and family support. to transport at discharge.
CM will follow with discharge plan updates as hospitalization progresses
[2024-10-27 17:32] LABS: Glucose - Point of Care 108 mg/dl (70-99)
[2024-10-27] MEDS: NOVOLOG FLEXPEN-LOW RESISTANCE SC (17:47)
[2024-10-27 21:34] LABS: Glucose - Point of Care 135 mg/dl (70-99)
[2024-10-27] MEDS: LANTUS 0.19 UNITS SC (22:05)
[2024-10-28 03:00] VITALS: BP 114/61
[2024-10-28 06:00] VITALS: BMI 26.3
[2024-10-28 07:11] LABS: Hematocrit 31.4 % (37.0-47.0); Hemoglobin 10.4 g/dL (12.0-16.0); Mean Corp Hgb Conc. 33.1 g/dL (33.0-37.0); Mean Corpuscular Volume 91.5 fL (81.0-99.0); Nucleated Red Blood Cells % 0 %; Platelet Count 238 10^3/uL (130-400); Red Cell Dist. Width 13.9 % (11.5-14.5)
[2024-10-28 07:15] LABS: Glucose - Point of Care 190 mg/dl (70-99)
[2024-10-28 07:16] VITALS: BP 90/61
[2024-10-28 07:58] LABS: Blood Urea Nitrogen 33 mg/dl (7-17); Calcium 9.4 mg/dl (8.4-10.2); Carbon Dioxide 18 mmol/L (22-30); Chloride 115 mmol/L (98-107); Estimated Creatinine Clearance 45 ml/min; Glucose 177 mg/dl (70-99); Potassium 4.7 mmol/L (3.5-5.1); Sodium 142 mmol/L (135-145); eGFR 58.97
[2024-10-28] MEDS: FEOSOL 975 MG PO (08:40)
[2024-10-28] MEDS: DAKIN'S SOLUTION 0.125% 1/4 STRENGTH TOPICAL (08:41)
[2024-10-28] MEDS: PEPCID 20 MG PO (08:41)
[2024-10-28] MEDS: PLAVIX 75 MG PO (08:41)
[2024-10-28] MEDS: HEPARIN 5000 UNITS SC ×2 (08:41→20:28)
[2024-10-28] MEDS: SENOKOT 8.6 MG PO (08:41)
[2024-10-28] MEDS: ASPIR LOW (ENTERIC COATED) 81 MG PO (08:41)
[2024-10-28] MEDS: COREG PO (08:42)
[2024-10-28] MEDS: NSS 500 IV (08:45)
[2024-10-28] MEDS: NOVOLOG FLEXPEN 9 UNITS SC ×3 (08:48→17:35)
[2024-10-28] MEDS: NOVOLOG FLEXPEN-LOW RESISTANCE 1 UNITS SC ×2 (08:48→12:52)
[2024-10-28 10:00] VITALS: BMI 26.3
--- NOTE | 2024-10-28 11:08 | W.PN.HOSP.TC ---
Today's Communication/Plan
-
Monitor vitals
see plan
Continue midodrine
500 cc fluid today
Patient should follow-up with urology outpatient
Continue with aspirin Plavix
Continue with Coreg with holding parameters
Assessment / Plan
Assessment / Plan
General: Well Developed, Well Nourished and No Apparent Distress
HEENT: NormoCephalic, Moist mucous membranes and Atraumatic
Respiratory: Clear
Cardiac: S1/S2 and Regular Rhythm; No Murmur or Rub
GI: Soft, Non Tender, Non Distended and Normal Bowel Sounds
Musculoskeletal:No Edema
Neuro: Nonfocal/grossly intact
Hypotension/severe orthostatic hypotension secondary to autonomic dysfunction
Random cortisol normal
- Blood cultures NGTD
Was mildly responsive to fluid resuscitation in the ED, hold further fluids. Continue to monitor orthostatics
Midodrine standing. Per patient her dizziness has been there for about 4 years
- Need to get records from [facility] particularly regarding echocardiogram and cardiology workup
- Cardiology following
Awaiting cardiology records from [facility]
Echo with preserved EF
Continue with low-dose Coreg and midodrine; continue Coreg with holding parameters. Increase midodrine to 5 mg 3 times daily
Ultrasound carotid Calcified plaque within the left carotid bulb. Velocity measurements suggestive of greater than 70% stenosis, however internal to common carotid ratio is suggestive of 50-69%.
2. Plaque within the right carotid bulb, measurements suggestive of less than 50% stenosis.
Discussed with patient, she should follow-up with vascular soon outpatient.
# Improving acute kidney injury secondary to vancomycin,contrast
-Creatinine of 1.2 on admission which is significantly improved from 4 during recent admission at [facility]
Creatinine now improving, 1.1 today
Osteomyelitis status post left fifth metatarsal amputation
PAD
s/p left fifth toe amputation at [facility] 08/2024
s/p left femoral-tibial peripheral bypass at [facility] 09/08/24
-Continue oxycodone
cw DAPT
Patient should be following up with vascular from [facility] outpatient
CAD with 100% RCA occlusion
EKG with previous possible inferior infarct, age undetermined. Per patient EKG [facility] showed possible infarct as well which she was never aware of which prompted them to do cardiac catheterization
- Not stented due to recent foot surgery
Cardiology following, no plan for any coronary intervention. Discussed with cardiology
- Continue aspirin
History of heart failure during recent admission
Type 2 diabetes
Continue Lantus, cw mealtime insulin
- Insulin sliding scale
A1c 7.4
Chronic anemia
- Continue ferrous sulfate
monitor
DVT in 2020
-not on AC
heparin for DVT ppx
Full code
Anticipated Discharge: Today
Subjective/Interval History
-
Date of Service: October 28, 2024
does have some dizziness
Objective Data
-
Labs:
Laboratory Results
10/28/24
06:32
WBC 5.3
Hgb 10.4 L
Hct 31.4 L
Plt Count 238
Sodium 142
Potassium 4.7
Chloride 115 H
Carbon Dioxide 18 L
BUN 33 H
Creatinine 1.1 H
Glucose 177 H
Calcium 9.4
Vital Signs:
Vital Signs
Temp Pulse Resp BP Pulse Ox
98.1 F 78 16 90/61 97
10/28/24 07:16 10/28/24 08:42 10/28/24 07:16 10/28/24 08:42 10/28/24 07:16
I&O
10/27/24 10/28/24 10/29/24
06:59 06:59 06:59
Intake Total 1320 / 1320 240 / 240
Balance 1320 / 1320 240 / 240
[2024-10-28 11:09] VITALS: BP 101/56
[2024-10-28 12:18] LABS: Glucose - Point of Care 172 mg/dl (70-99)
[2024-10-28] MEDS: NSS 1000 IV (12:51)
--- NOTE | 2024-10-28 14:33 | CM ---
CM following re: discharge planning.
Reviewed pt's chart, met with pt.
Pt lives with and a daughter 2SH, 1 step to enter. Pt reports she ambulates with a walker, currently with [facility] and pt requested to resume [facility] upon the discharge.
PT and OT evaluations noted - home PT/OT recommended.
[facility] liaison following.
Please fax discharge instructions to [facility] at [phone]
D/C plan: home with resumptions of [facility] and family support. Daughter to transport at discharge.
CM will follow with discharge plan updates as hospitalization progresses
[2024-10-28 15:05] VITALS: BP 124/62
[2024-10-28 16:58] LABS: Glucose - Point of Care 122 mg/dl (70-99)
[2024-10-28] MEDS: NOVOLOG FLEXPEN-LOW RESISTANCE SC (17:35)
[2024-10-28 19:00] VITALS: BP 123/60; BP 135/68; BP 90/57; PULSE 97; PULSE 98; PULSE 99
[2024-10-28] MEDS: COREG 3.125 MG PO (20:28)
[2024-10-28 22:16] LABS: Glucose - Point of Care 210 mg/dl (70-99)
[2024-10-28] MEDS: LANTUS 0.19 UNITS SC (22:18)
[2024-10-28 23:12] VITALS: BP 139/70
[2024-10-29 03:27] VITALS: BP 110/56
[2024-10-29 06:00] VITALS: BMI 26.6
[2024-10-29 07:00] VITALS: BP 110/58; BP 76/47; BP 95/51; PULSE 74; PULSE 75
[2024-10-29 07:18] LABS: Glucose - Point of Care 191 mg/dl (70-99)
[2024-10-29 07:25] LABS: Hematocrit 30.2 % (37.0-47.0); Hemoglobin 9.8 g/dL (12.0-16.0); Mean Corp Hgb Conc. 32.5 g/dL (33.0-37.0); Mean Corpuscular Volume 94.4 fL (81.0-99.0); Nucleated Red Blood Cells % 0 %; Platelet Count 228 10^3/uL (130-400); Red Cell Dist. Width 13.6 % (11.5-14.5)
[2024-10-29 07:47] LABS: Blood Urea Nitrogen 27 mg/dl (7-17); Calcium 9.3 mg/dl (8.4-10.2); Carbon Dioxide 22 mmol/L (22-30); Chloride 116 mmol/L (98-107); Estimated Creatinine Clearance 56 ml/min; Glucose 185 mg/dl (70-99); Potassium 4.8 mmol/L (3.5-5.1); Sodium 144 mmol/L (135-145); eGFR > 60.00
[2024-10-29] MEDS: NOVOLOG FLEXPEN 9 UNITS SC ×2 (08:04→13:03)
[2024-10-29] MEDS: NOVOLOG FLEXPEN-LOW RESISTANCE 1 UNITS SC ×2 (08:04→13:02)
[2024-10-29] MEDS: PLAVIX 75 MG PO (08:08)
[2024-10-29] MEDS: FEOSOL 975 MG PO (08:08)
[2024-10-29] MEDS: SENOKOT 8.6 MG PO (08:08)
[2024-10-29] MEDS: PEPCID 20 MG PO (08:08)
[2024-10-29] MEDS: ASPIR LOW (ENTERIC COATED) 81 MG PO (08:08)
[2024-10-29] MEDS: HEPARIN 5000 UNITS SC (08:09)
[2024-10-29] MEDS: DAKIN'S SOLUTION 0.125% 1/4 STRENGTH TOPICAL (08:10)
[2024-10-29] MEDS: COREG PO (08:10)
--- NOTE | 2024-10-29 10:40 | W.PN.HOSP.TC ---
Addendum entered and electronically signed by Israel Ley MD 10/29/24 10:49:
Time of discharge 37 minutes
Original Note:
Today's Communication/Plan
-
Monitor vital signs see plan
Discharge today
Patient will need vascular follow-up outpatient
Continue with aspirin Plavix
Assessment / Plan
Assessment / Plan
General: Well Developed, Well Nourished and No Apparent Distress
HEENT: NormoCephalic, Moist mucous membranes and Atraumatic
Respiratory: Clear
Cardiac: S1/S2 and Regular Rhythm; No Murmur or Rub
GI: Soft, Non Tender, Non Distended and Normal Bowel Sounds
Musculoskeletal:No Edema
Neuro: Nonfocal/grossly intact
Hypotension/severe orthostatic hypotension secondary to autonomic dysfunction
Random cortisol normal
- Blood cultures NGTD
Was mildly responsive to fluid resuscitation in the ED, hold further fluids. Continue to monitor orthostatics
Midodrine standing. Per patient her dizziness has been there for about 4 years
- Need to get records from [facility] particularly regarding echocardiogram and cardiology workup
- Cardiology following
Awaiting cardiology records from [facility]
Echo with preserved EF
Continue with low-dose Coreg and midodrine; continue Coreg with holding parameters. Increase midodrine to 5 mg 3 times daily
Ultrasound carotid Calcified plaque within the left carotid bulb. Velocity measurements suggestive of greater than 70% stenosis, however internal to common carotid ratio is suggestive of 50-69%.
2. Plaque within the right carotid bulb, measurements suggestive of less than 50% stenosis.
Discussed with patient, she should follow-up with vascular soon outpatient.
Responded well to fluids 10/28. Post fluid was complaining of chest tightness, EKG unchanged. Chest x-ray without any pulmonary edema. This morning patient feels a lot better. Discharge home today
# Improving acute kidney injury secondary to vancomycin,contrast
-Creatinine of 1.2 on admission which is significantly improved from 4 during recent admission at [facility]
Creatinine now improving, 1 today
Osteomyelitis status post left fifth metatarsal amputation
PAD
s/p left fifth toe amputation at [facility] 08/2024
s/p left femoral-tibial peripheral bypass at [facility] 09/08/24
-Continue oxycodone
cw DAPT
Patient should be following up with vascular from [facility] outpatient
CAD with 100% RCA occlusion
EKG with previous possible inferior infarct, age undetermined. Per patient EKG [facility] showed possible infarct as well which she was never aware of which prompted them to do cardiac catheterization
- Not stented due to recent foot surgery
Cardiology following, no plan for any coronary intervention. Discussed with cardiology
- Continue aspirin
History of heart failure during recent admission
Type 2 diabetes
Continue Lantus, cw mealtime insulin
- Insulin sliding scale
A1c 7.4
Chronic anemia
- Continue ferrous sulfate
monitor
DVT in 2020
-not on AC
heparin for DVT ppx
Full code
Anticipated Discharge: Today
Subjective/Interval History
-
Date of Service: October 29, 2024
denies pain
Objective Data
-
Labs:
Laboratory Results
10/29/24
06:27
WBC 4.6 L
Hgb 9.8 L
Hct 30.2 L
Plt Count 228
Sodium 144
Potassium 4.8
Chloride 116 H
Carbon Dioxide 22
BUN 27 H
Creatinine 1.0
Glucose 185 H
Calcium 9.3
Vital Signs:
Vital Signs
Temp Pulse Resp BP Pulse Ox
98.1 F 75 16 107/57 97
10/29/24 07:00 10/29/24 08:10 10/29/24 03:27 10/29/24 08:10 10/29/24 03:27
I&O
10/28/24 10/29/24 10/30/24
06:59 06:59 06:59
Intake Total 240 / 240 1360 / 1360
Balance 240 / 240 1360 / 1360
--- NOTE | 2024-10-29 10:49 | W.DCSUMMARY ---
Discharge Summary
Discharge Data
Date of Admission: 10/25/24
Date of Discharge: 10/29/24
-
Pending Results: No
Hospital Course
54-year-old female with past medical history of osteomyelitis status post left fifth metatarsal amputation, PAD status post left femoral to tibial peripheral bypass, CAD, remote NM, type 2 diabetes mellitus, chronic anemia, DVT came to the hospital
with hypotension and orthostatic hypotension which was initially thought was possibly secondary to cardiac source. Patient was seen by cardiology and had an echocardiogram which showed preserved EF. EKG did had inferior abnormality which was
already known. Cardiology recommended patient to follow-up with them outpatient. Given her peripheral vascular disease, ultrasound carotid was also done which showed calcified plaque within the left carotid bulb however internal to common carotid
ratio is suggestive of 50 to 69%. Patient was instructed to follow-up soon with her vascular surgeon from [facility] outpatient. Once her symptoms continue to improve, she was then discharged home with instructions to follow-up with all her
physicians outpatient.
Discharge Plan
-
Patient Disposition: Home with Home Care
Discharge Diagnosis/Procedures: Orthostatic hypotension, coronary artery disease, peripheral arterial disease
Calcified plaque in left carotid bulb
Condition: Fair
Diet: Low Fat and Diabetic, Carb Controlled
Activity: As tolerated
Driving Restrictions: As prior to admission
Bathing Restrictions: OK to Shower
Other Services: VN
Activity Restrictions/Additional Instructions:
Please follow-up with your vascular physician soon outpatient
Ultrasound carotid Calcified plaque within the left carotid bulb. Velocity measurements suggestive of greater than 70% stenosis, however internal to common carotid ratio is suggestive of 50-69%.
2. Plaque within the right carotid bulb, measurements suggestive of less than 50% stenosis.
Referrals:
Jerald Quintana MD [Active, Cardiology] - 11/10/24 3:00 pm
Referral Note: You have an appointment to see Dr. Quintana at the [place] office on 11/10/2024 at 3 PM. Please call [phone] if you need to reschedule.
Som Resendiz DO [Family Provider, Family Practice] - in less than 1 week
Additional Discharge Medication Instructions: - Start taking Coreg (carvedilol) 3.125 mg twice daily to help with medical management of heart disease.
- Start taking midodrine 5 mg 3 times daily at 8 AM, 1 PM and 6 PM daily to help with drops in blood pressure.
Prescriptions:
New
carvedilol 3.125 mg Tablet
3.125 mg PO BID Qty: 60 11RF
midodrine 5 mg Tablet
5 mg PO TID@0800,1300,1800 Qty: 90 0RF
Continued
sennosides [senna] 8.6 mg Tablet
8.6 mg PO DAILY
polyethylene glycol 3350 [Miralax] 17 gram Powder In Packet
17 g PO DAILYPRN PRN (Reason: CONSTIPATION)
clopidogrel [Plavix] 75 mg Tablet
75 mg PO DAILY
aspirin 81 mg Tablet,Delayed Release (Dr/Ec)
81 mg PO DAILY
famotidine [Pepcid] 20 mg Tablet
20 mg PO DAILY
ferrous sulfate 325 mg (65 mg iron) Tablet
975 mg PO DAILY
zolpidem [Ambien] 5 mg Tablet
5 mg PO HS
Dakin's Solution 0.125 % Solution
1 applic TOPICAL DAILY
insulin glargine-yfgn 100 unit/mL Solution
19 unit SC HS
insulin aspart U-100 [Novolog FlexPen U-100 Insulin] 300 UNITS/3 ML insulin pen
8 units SC AC
Discharge Orders:
Discharge Patient (As Directed); Ordered 10/29/24
Ordered By: Israel Ley
Discharge Date and Time
Discharge Date/Time: 10/29/24 14:44
Print Language: UZBEK
--- NOTE | 2024-10-29 10:55 | CM ---
CM updated [facility] via [facility] today.
[2024-10-29 11:07] VITALS: BP 92/52
[2024-10-29 12:18] LABS: Glucose - Point of Care 177 mg/dl (70-99)
== END 2024-10-29 14:44 | disposition home health service (06) | DRG 312 ==
LOC: 2 NORTH 19:11
PROVIDERS: Emergency Medicine; ADMITTING PHYSICIAN Hospitalist; ATTENDING PHYSICIAN Internal Medicine; EMERGENCY PHYSICIAN Emergency Medicine; FAMILY PHYSICIAN Family Medicine; OTHER PHYSICIAN Internal Medicine Cardiovascular Disease
DX: I95.1 Orthostatic hypotension (principal); I50.32 Chronic diastolic (congestive) heart failure; E11.51 Type 2 diabetes mellitus with diabetic peripheral angiopathy without gangrene; E78.5 Hyperlipidemia, unspecified; I25.10 Atherosclerotic heart disease of native coronary artery without angina pectoris; I25.2 Old myocardial infarction; I25.82 Chronic total occlusion of coronary artery; I65.22 Occlusion and stenosis of left carotid artery; D64.9 Anemia, unspecified; R53.83 Other fatigue; Z79.02 Long term (current) use of antithrombotics/antiplatelets; Z79.4 Long term (current) use of insulin; Z79.82 Long term (current) use of aspirin; Z79.899 Other long term (current) drug therapy; Z86.711 Personal history of pulmonary embolism; Z86.718 Personal history of other venous thrombosis and embolism; Z86.16 Personal history of COVID-19; Z95.820 Peripheral vascular angioplasty status with implants and grafts; Z89.422 Acquired absence of other left toe(s)
CPT/HCPCS: 71045; 71046; 80048; 80053; 82533; 82962; 83036; 83605; 84443; 85025; 87040; 93005; 93306; 93880; 97162; 97166; 99284; Q9950

== ENCOUNTER → 2024-11-17 15:19 | Outpatient (REF) | payer OTHER, SELFPAY | LOC: REG 15:19 | PROVIDERS: ATTENDING PHYSICIAN Surgery Vascular Surgery; FAMILY PHYSICIAN Family Medicine | DX: Z01.818 Encounter for other preprocedural examination (principal) | CPT/HCPCS: 36415; 86850; 86900; 86901 ==

== ENCOUNTER → 2024-12-12 12:53 | Outpatient (REF) | payer OTHER, SELFPAY ==
[2024-12-12 14:52] LABS: Blood Urea Nitrogen 46 mg/dl (7-17); Calcium 9.5 mg/dl (8.4-10.2); Carbon Dioxide 24 mmol/L (22-30); Chloride 108 mmol/L (98-107); Glucose 255 mg/dl (70-99); Potassium 5.0 mmol/L (3.5-5.1); Sodium 141 mmol/L (135-145); eGFR 58.97
== END ==
LOC: REG 12:53
PROVIDERS: FAMILY PHYSICIAN Family Medicine
DX: I73.9 Peripheral vascular disease, unspecified (principal)
CPT/HCPCS: 36415; 80048